=== PATIENT | male | born 1965 | race Caucasian/White ===

== ENCOUNTER 2016-11-20 17:19 | Outpatient (CLI) | payer OTHER ==
--- NOTE | 2016-11-20 18:07 | DIAGNOSTIC IMAGING REPORT ---
PROCEDURE: XR HIP 2VW W W/O AP PELVIS-RT INDICATION: RIGHT HIP PAIN TECHNIQUE: AP view of the pelvis and hips with lateral view of the right hip. COMPARISON: None. FINDINGS: RIGHT HIP: Mild right femoral head contour irregularity. Mild degenerative changes with acetabular spurring and femoral head subchondral cyst. No fracture or dislocation. PELVIS: No suspicious osseous lesions. Surgical clips project over both inguinal regions. IMPRESSION: 1. 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 Recommend MRI. 2. Mild right hip degenerative changes
== END 2016-11-20 23:00 ==
LOC: XR SRH 17:19
DX: M16.11 Unilateral primary osteoarthritis, right hip (principal)